=== PATIENT | female | born 1970 | race Two or more races ===

== ENCOUNTER 2017-03-20 19:24 | Observation (INO) | payer BC, OTHER ==
[2017-03-20] VITALS (7 sets, daily range): BP systolic 115–153; BP diastolic 84–104; PULSE 62–73; RESP 16–18; TEMP 98.2–98.7; O2SAT 95–100
[~2017-03-20] VITALS: Ht 162.6 cm; Wt 93.4 kg
[~2017-03-20 19:24] MED LIST: ALPR.25 PO; MULT1CHW33 PO
[2017-03-20] MEDS ORDERED: SODIUM CHLORIDE 0.9% FLUSH 10 ML FLUSH IVF PRN (19:45)
[2017-03-20] MEDS ORDERED: MENE0.3T3 PO (19:46)
--- NOTE | 2017-03-20 19:51 | PD ---
HPI Chief Complaint: Neuro Symptoms/ Deficits Time Seen by Provider: 19:30 Travel History International Travel<30 days: No Contact w/Intl Traveler<30days: No Traveled to known affect area: No History of Present Illness HPI patient gives a 2 day history of right sided headache, sharp, 6/10, intermittent , without alleviating/aggravating factors....now has tingling over right cheek and her right fingertips ONLY, onset about 1 hour ago. [place] doctor [place]cp but can't recall name all:denies pmhx: hyperchol, anxiety, menopause (on hormones, only meds she is on) pshx:csexn denies smoking/drinking history PFSH Past Medical History Diminished Hearing: No Immunizations Current: Yes Past Surgical History Section: Yes Social History Alcohol Use: No Tobacco Use: No Substance Use: No Allergies-Medications (Allergen,Severity, Reaction): Coded Allergies: No Known Allergies (Unverified Adverse Reaction, Unknown, 03/20/17) Reported Meds & Prescriptions Reported Meds & Active Scripts Active Reported Menest (Estrogens, Esterified) 0.3 Mg Tab 0.3 Mg PO DAILY Review of Systems Except as stated in HPI: all other systems reviewed are Neg General / Constitutional: No: Fever Eyes: No: Visual changes HENT: Positive: Headaches Cardiovascular: No: Chest Pain or Discomfort Respiratory: No: Shortness of Breath Gastrointestinal: No: Abdominal Pain Genitourinary: No: Dysuria Musculoskeletal: No: Pain Skin: No Rash Neurologic: Positive: Paresthesia Psychiatric: No: Depression Endocrine: No: Polydipsia Hematologic/Lymphatic: No: Easy Bruising Physical Exam Narrative GENERAL: SKIN: Warm and dry. HEAD: Atraumatic. Normocephalic. EYES: Pupils equal and round. No scleral icterus. No injection or drainage. ENT: No nasal bleeding or discharge. Mucous membranes pink and moist. NECK: Trachea midline. No JVD. CARDIOVASCULAR: Regular rate and rhythm. RESPIRATORY: No accessory muscle use. Clear to auscultation. Breath sounds equal bilaterally. GASTROINTESTINAL: Abdomen soft, non-tender, nondistended. Hepatic and splenic margins not palpable. MUSCULOSKELETAL: Extremities without clubbing, cyanosis, or edema. No obvious deformities. NEUROLOGICAL: Awake and alert. No obvious cranial nerve deficits. Motor grossly within normal limits. Five out of 5 muscle strength in the arms and legs. Normal speech. no facial droop PSYCHIATRIC: Appropriate mood and affect; insight and judgment normal. Data Data Last Documented VS Vital Signs Date Time Temp Pulse Resp B/P (MAP) Pulse Ox O2 Delivery O2 Flow Rate FiO2 03/20/17 19:47 18 95 Room Air Orders Orders Electrocardiogram (03/20/17 19:41) Prothrombin Time / Inr (Pt) (03/20/17 19:41) Act Partial Throm Time (Ptt) (03/20/17 19:41) Complete Blood Count With Diff (03/20/17 19:41) Comprehensive Metabolic Panel (03/20/17 19:41) Drug Screen, Random Urine (03/20/17 19:41) Troponin I (03/20/17 19:41) Urinalysis - C+S If Indicated (03/20/17 19:41) Ct Brain W/O Iv Contrast(Rout) (03/20/17 19:41) Ecg Monitoring (03/20/17 19:41) Iv Access Insert/Monitor (03/20/17 19:41) Oximetry (03/20/17 19:41) Blood Glucose (03/20/17 19:41) Sodium Chloride 0.9% Flush (Ns Flush) (03/20/17 19:45) Labs Laboratory Tests Test 03/20/17 19:35 [facility] Medical Decision Making Medical Screen Exam Complete: Yes Emergency Medical Condition: Yes Medical Record Reviewed: Yes Interpretation(s) ekg is nsr, 70, normal intervals, no stemi pattern Differential Diagnosis paresthesia peripheral v cva v tia v Narrative Course not tpa candidate due to minimum symptoms Physician Communication Physician Communication contacted and d/w dr marquez at 1954 who agrees with my plan of : if ct neg for bleed, admit for tia/stroke workup, give asa 325, follow bp and if persistently elevated after pain control may give bp control.....additionally agrees that this is NOT a tpa candidate due to minimal symptoms. ct official report at 2029 neg ich Diagnosis Primary Impression: TIA (transient ischemic attack) Qualified Codes: G45.9 - Transient cerebral ischemic attack, unspecified Admitting Information Admitting Physician Requests: Admit Manan Almonte MD Mar 20, 2017 19:51
--- NOTE | 2017-03-20 20:18 | RADRPT ---
EXAM DATE/TIME: 03/20/2017 19:54 [facility] COMPARISON: CT BRAIN W/O CONTRAST, March 01, 2015, 13:44. INDICATIONS : Numbness right side of face. RADIATION DOSE: 62.63 CTDIvol (mGy) MEDICAL HISTORY : Hypertension. SURGICAL HISTORY : None. ENCOUNTER: Initial ACUITY: 1 day PAIN SCALE: 0/10 LOCATION: Right cranial TECHNIQUE: Multiple contiguous axial images were obtained of the head. Using automated exposure control and adj ustment of the mA and/or kV according to patient size, radiation dose was kept as low as reasonably a chievable to obtain optimal diagnostic quality images. DICOM format image data is available electro nically for review and comparison. FINDINGS: CEREBRUM: The ventricles are normal for age. No evidence of midline shift, mass lesion, hemorrhage or acute in farction. No extra-axial fluid collections are seen. POSTERIOR FOSSA: The cerebellum and brainstem are intact. The 4th ventricle is midline. The cerebellopontine angle i s unremarkable. EXTRACRANIAL: The visualized portion of the orbits is intact. SKULL: The calvaria is intact. No evidence of skull fracture. CONCLUSION: Normal examination. Solomon Eldridge MD on March 20, 2017 at 20:11 Board Certified Radiologist. This report was verified electronically.
[2017-03-20 20:31] LABS: CHLORIDE 104 MEQ/L (98-107); SODIUM (NA) 138 MEQ/L (136-145)
[2017-03-20 20:36] LABS: ANION GAP 7 MEQ/L (5-15); BLOOD UREA NITROGEN 15 MG/DL (7-18)
[2017-03-20 20:39] LABS: ALT (GPT) 27 U/L (10-53); AST (GOT) 30 U/L (15-37); GLOMERULAR FILTRATION RATE 91 ML/MIN (>89)
[2017-03-20 20:40] LABS: TOTAL BILIRUBIN ADULT 0.4 MG/DL (0.2-1.0)
[2017-03-20 20:42] LABS: ALKALINE PHOSPHATASE 104 U/L (45-117)
[2017-03-20 20:51] LABS: POTASSIUM 3.7 MEQ/L (3.5-5.1)
[2017-03-20 20:56] LABS: BLOOD, URINE TRACE (NEG); GLUCOSE,URINE NEG (NEG); KETONE, URINE NEG (NEG); NITRITE,URINE NEG (NEG)
[2017-03-20 21:07] LABS: RBC, URINE 0-3 /hpf (0-3); SQUAMOUS EPITHELIAL CELL URINE 0-5 /hpf (0-5); URINE COLOR STRAW (YELLW/STRAW)
[2017-03-20 21:08] LABS: BACTERIA, URINE FEW /hpf
[2017-03-20 21:09] LABS: COMMENT (UR) CULT NOT INDICATED; CULTURE IF INDICATED CULT NOT INDICATED
[2017-03-20 21:15] LABS: APTT (PATIENT) 27.6 SEC (24.3-30.1); AUTOMATED NEUTROPHIL # 5.1 TH/MM3 (1.8-7.7); BASOPHIL % 0.5 % (0.0-2.0); EOSINOPHIL # 0.1 TH/MM3 (0-0.4); EOSINOPHIL % 1.3 % (0.0-4.0); HEMATOCRIT 39.5 % (35.0-46.0); HEMO FLAGS DIFF FINAL; LYMPH % 25.4 % (9.0-44.0); LYMPHOCYTE # 1.9 TH/MM3 (1.0-4.8); MEAN CELL VOLUME 89.8 FL (80.0-100.0); MEAN CORPUSCULAR HEMOGLOBIN 30.5 PG (27.0-34.0); MONO % 6.2 % (0.0-8.0); NEUT % 66.6 % (16.0-70.0); PLATELET COUNT 427 TH/MM3 (150-450); PROTHROMBIN TIME - PATIENT 9.7 SEC (9.8-11.6); RED CELL DISTRIBUTION WIDTH 13.4 % (11.6-17.2); WHITE BLOOD COUNT 7.6 TH/MM3 (4.0-11.0)
[2017-03-20] MEDS ORDERED: ASPIRIN 325 MG TAB PO ONE (21:30)
[2017-03-20] MEDS ORDERED: LACTULOSE SYRUP 20 GM/30 ML CUP PO PRN (22:15)
[2017-03-20] MEDS ORDERED: GLUCAGON 1 MG/ML VIAL OTHER PRN (22:15)
[2017-03-20] MEDS ORDERED: ACETAMINOPHEN 325 MG TAB PO PRN (22:15)
[2017-03-20] MEDS ORDERED: SENNOSIDES 8.6 MG TAB PO PRN (22:15)
[2017-03-20] MEDS ORDERED: ACETAMINOPHEN/HYDROcodone 325 MG/10 MG TAB PO PRN (22:15)
[2017-03-20] MEDS ORDERED: SODIUM CHLORIDE 0.9% FLUSH 10 ML FLUSH IV FLUSH PRN (22:15)
[2017-03-20] MEDS ORDERED: ACETAMINOPHEN/HYDROcodone 325 MG/5 MG TAB PO PRN (22:15)
[2017-03-20] MEDS ORDERED: DEXTROSE 50% IN WATER 50 ML VIAL(D50) IV PUSH PRN (22:15)
[2017-03-20] MEDS ORDERED: MAGNESIUM HYDROXIDE SUSP 30 ML CUP PO PRN (22:15)
[2017-03-20] MEDS ORDERED: ONDANSETRON HCL 4 MG/2 ML VIAL IVP PRN (22:15)
[2017-03-20] MEDS ORDERED: ENALAPRILAT 1.25 MG/ML VIAL IV PUSH PRN (22:15)
[2017-03-20] MEDS ORDERED: BISACODYL 10 MG SUPP RECTAL PRN (22:15)
[2017-03-21] VITALS: BP 150/99; PULSE 64; RESP 18; TEMP 98; O2SAT 100
[2017-03-21] MEDS: SODIUM CHLOR 0.9% 1000 ML INJ 1,000 ML IV SCH ×2 (00:27→12:21)
[2017-03-21 04:00] VITALS: BP 110/65; PULSE 62; RESP 18; TEMP 97.5; O2SAT 99
[2017-03-21 06:08] LABS: BASOPHIL % 0.5 % (0.0-2.0); EOSINOPHIL # 0.1 TH/MM3 (0-0.4); EOSINOPHIL % 1.6 % (0.0-4.0); HEMATOCRIT 40.7 % (35.0-46.0); HEMO FLAGS DIFF FINAL; LYMPH % 29.1 % (9.0-44.0); LYMPHOCYTE # 1.9 TH/MM3 (1.0-4.8); MEAN CELL VOLUME 92.4 FL (80.0-100.0); MEAN CORPUSCULAR HEMOGLOBIN 30.1 PG (27.0-34.0); MEAN CORPUSCULAR HGB CONC 32.6 % (32.0-36.0); MONO % 6.9 % (0.0-8.0); NEUT % 61.9 % (16.0-70.0); PLATELET COUNT 401 TH/MM3 (150-450); RED CELL DISTRIBUTION WIDTH 13.8 % (11.6-17.2); WHITE BLOOD COUNT 6.4 TH/MM3 (4.0-11.0)
[2017-03-21 06:19] LABS: CHLORIDE 108 MEQ/L (98-107); POTASSIUM 3.5 MEQ/L (3.5-5.1); SODIUM (NA) 141 MEQ/L (136-145)
[2017-03-21 06:51] LABS: ALKALINE PHOSPHATASE 84 U/L (45-117); ALT (GPT) 19 U/L (10-53); ANION GAP 7 MEQ/L (5-15); AST (GOT) 17 U/L (15-37); BICARBONATE 25.8 MEQ/L (21.0-32.0); BLOOD UREA NITROGEN 11 MG/DL (7-18); GLOMERULAR FILTRATION RATE 111 ML/MIN (>89); TOTAL BILIRUBIN ADULT 0.3 MG/DL (0.2-1.0)
[2017-03-21 08:00] VITALS: BP 107/74; PULSE 64; RESP 18; TEMP 98; O2SAT 98
[2017-03-21] MEDS: INSULIN ASPART SUPPLEMENTAL SCALE SQ SCH ×2 (08:00→12:00)
[2017-03-21 08:17] VITALS: O2SAT 97
[2017-03-21] MEDS ORDERED: DOCUSATE SODIUM 50 MG/SENNA 8.6 MG TAB PO SCH (09:00)
[2017-03-21] MEDS ORDERED: ASPIRIN 81 MG CHEW TAB PO SCH (09:00)
[2017-03-21] MEDS ORDERED: SODIUM CHLORIDE 0.9% FLUSH 10 ML FLUSH IV FLUSH SCH (09:00)
[2017-03-21] MEDS ORDERED: IBUPROFEN 800 MG TAB PO ONE (10:15)
[2017-03-21 10:16] LABS: HDL CHOLESTEROL 42.4 MG/DL (40.0-60.0); LDL CHOLESTEROL 106 MG/DL (0-99)
--- NOTE | 2017-03-21 10:46 | HHI.HP ---
[facility] [place] [facility] Primary [facility] Physician Chance Anguiano MD Admission Diagnosis TIA Diagnoses: Chief Complaint: Headache with facial numbness Travel History International Travel<30 Days: No Contact w/Intl Traveler <30 Da: No Traveled to Known Affected Are: No History of Present Illness This patient a 46-year-old female with 2 days of scalp pain and right facial numbness. Recently her son is in the hospital and her dog had been sick. She had not been sleeping well or eating well. Nonetheless today she developed the symptoms and came to the emergency room for further evaluation. Initial imaging was unremarkable. Patient had no peripheral numbness or tingling no slurred speech and no confusion. She is recommended for observation to rule out TIA Review of Systems Constitutional: DENIES: Diaphoretic episodes, Fatigue, Fever, Weight gain, Weight loss, Chills, Dizziness, Change in appetite, Night Sweats Endocrine: DENIES: Abnorml menstrual pattern, Heat/cold intolerance, Polydipsia , Polyuria, Polyphagia Eyes: DENIES: Blurred vision, Diplopia, Eye inflammation, Eye pain, Vision loss , Photosensitivity, Double Vision Ears, nose, mouth, throat: DENIES: Tinnitus, Hearing loss, Vertigo, Nasal discharge, Oral lesions, Throat pain, Hoarseness, Ear Pain, Running Nose, Epistaxis, Sinus Pain, Toothache, Odynophagia Respiratory: DENIES: Apneas, Cough, Snoring, Wheezing, Hemoptysis, Sputum production, Shortness of breath Cardiovascular: DENIES: Chest pain, Palpitations, Syncope, Dyspnea on Exertion , PND, Lower Extremity Edema, Orthopnea, Claudication Gastrointestinal: DENIES: Abdominal pain, Black stools, Bloody stools, Constipation, Diarrhea, Nausea, Vomiting, Difficulty Swallowing, Anorexia Genitourinary: DENIES: Abnormal vaginal bleeding, Dysmenorrhea, Dyspareunia, Sexual dysfunction, Urinary frequency, Urinary incontinence, Urgency, Hematuria , Dysuria, Nocturia, Vaginal discharge Musculoskeletal: DENIES: Joint pain, Muscle aches, Stiffness, Joint Swelling, Back pain, Neck pain Integumentary: DENIES: Abnormal pigmentation, Pruritus, Rash, Nail changes, Breast masses, Breast skin changes, Nipple discharge Hematologic/lymphatic: DENIES: Bruising, Lymphadenopathy Immunologic/allergic: DENIES: Eczema, Urticaria Except as stated in HPI: all other systems reviewed are Neg Past Family Social History Past Medical History Hyperlipidemia Past Surgical History Reported Medications reviewed in the EMR, nothing Allergies: Coded Allergies: No Known Allergies (Unverified Allergy, Unknown, 03/20/17) Active Ordered Medications reviewed in the EMR Family History Father from gastric cancer, mother from leukemia in her 30s Social History No tobacco or alcohol dependency, lives with her family Physical Exam Vital Signs Vital Signs Date Time Temp Pulse Resp B/P (MAP) Pulse Ox O2 Delivery O2 Flow Rate FiO2 03/21/17 08:17 97 21 03/21/17 08:00 98.0 64 18 107/74 (85) 98 03/21/17 04:00 97.5 62 18 110/65 (80) 99 03/21/17 00:00 98.0 64 18 150/99 (116) 100 03/20/17 23:36 97 21 03/20/17 23:11 62 03/20/17 22:40 98.2 64 18 150/99 (116) 100 03/20/17 22:39 03/20/17 21:32 65 16 128/88 (101) 96 Room Air 03/20/17 20:52 72 16 115/84 (94) 97 Room Air 03/20/17 19:47 18 95 Room Air 03/20/17 19:35 98.7 73 18 153/98 (116) 95 151/104 (120) 03/20/17 19:35 Room Air Physical Exam GENERAL: This is a well-nourished, well-developed patient, in no apparent distress. SKIN: No rashes, ecchymoses or lesions. Cool and dry. HEAD: Atraumatic. Normocephalic. No temporal or scalp tenderness. EYES: Pupils equal round and reactive. Extraocular motions intact. No scleral icterus. No injection or drainage. ENT: Nose without bleeding, purulent drainage or septal hematoma. Throat without erythema, tonsillar hypertrophy or exudate. Uvula midline. Airway patent. NECK: Trachea midline. No JVD or lymphadenopathy. Supple, nontender, no meningeal signs. CARDIOVASCULAR: Regular rate and rhythm without murmurs, gallops, or rubs. RESPIRATORY: Clear to auscultation. Breath sounds equal bilaterally. No wheezes , rales, or rhonchi. GASTROINTESTINAL: Abdomen soft, non-tender, nondistended. No hepato-splenomegaly , or palpable masses. No guarding. MUSCULOSKELETAL: Extremities without clubbing, cyanosis, or edema. No joint tenderness, effusion, or edema noted. No calf tenderness. Negative Homans sign bilaterally. NEUROLOGICAL: Awake and alert. Cranial nerves II through XII intact. Motor and sensory grossly within normal limits. Five out of 5 muscle strength in all muscle groups. Normal speech. Laboratory Laboratory Tests Test 03/20/17 19:35 03/20/17 20:40 03/21/17 04:38 Blood Urea Nitrogen 15 11 Creatinine 0.69 0.58 Random Glucose 82 122 Total Protein 8.0 6.7 Albumin 3.4 2.8 Calcium Level 8.6 8.5 Alkaline Phosphatase 104 84 Aspartate Amino Transf (AST/SGOT) 30 17 Alanine Aminotransferase (ALT/SGPT) 27 19 Total Bilirubin 0.4 0.3 Sodium Level 138 141 Potassium Level 3.7 3.5 Chloride Level 104 108 Carbon Dioxide Level 27.0 25.8 Anion Gap 7 7 Estimat Glomerular Filtration Rate 91 111 Troponin I LESS THAN 0.02 White Blood Count 7.6 6.4 Red Blood Count 4.40 4.40 Hemoglobin 13.4 13.3 Hematocrit 39.5 40.7 Mean Corpuscular Volume 89.8 92.4 Mean Corpuscular Hemoglobin 30.5 30.1 Mean Corpuscular Hemoglobin Concent 34.0 32.6 Red Cell Distribution Width 13.4 13.8 Platelet Count 427 401 Mean Platelet Volume 6.9 6.9 Neutrophils (%) (Auto) 66.6 61.9 Lymphocytes (%) (Auto) 25.4 29.1 Monocytes (%) (Auto) 6.2 6.9 Eosinophils (%) (Auto) 1.3 1.6 Basophils (%) (Auto) 0.5 0.5 Neutrophils # (Auto) 5.1 4.0 Lymphocytes # (Auto) 1.9 1.9 Monocytes # (Auto) 0.5 0.4 Eosinophils # (Auto) 0.1 0.1 Basophils # (Auto) 0.0 0.0 CBC Comment DIFF FINAL DIFF FINAL Differential Comment Prothrombin Time 9.7 Prothromb Time International Ratio 1.0 Activated Partial Thromboplast Time 27.6 Urine Color STRAW Urine Turbidity SLIGHT Urine pH 6.0 Urine Specific Orion 1.005 Urine Protein NEG Urine Glucose (UA) NEG Urine Ketones NEG Urine Occult Blood TRACE Urine Nitrite NEG Urine Bilirubin NEG Urine Leukocyte Esterase NEG Urine RBC 0-3 Urine Squamous Epithelial Cells 0-5 Urine Bacteria FEW Microscopic Urinalysis Comment CULT NOT INDICATED Urine Opiates Screen NEG Urine Barbiturates Screen NEG Urine Amphetamines Screen NEG Urine Benzodiazepines Screen NEG Urine Cocaine Screen NEG Urine Cannabinoids Screen NEG Triglycerides Level 156 Cholesterol Level 180 LDL Cholesterol 106 HDL Cholesterol 42.4 Cholesterol/HDL Ratio 4.24 Result Diagram: 03/21/17 0438 03/21/17 0438 Imaging Last [address] 03/20/171940 Signed Impressions: Service Date/Time: Monday, March 20, 2017 19:54 - CONCLUSION: Normal examination. Solomon Eldridge MD Assessment and Plan Problem List: (1) TIA (transient ischemic attack) ICD Code: G45.9 - Transient cerebral ischemic attack, unspecified Status: Acute Plan: Neurological symptoms which are nonspecific and likely represent, migraine. We'll try ibuprofen Follow-up repeat brain imaging If negative discharge home Problem Qualifiers (1) TIA (transient ischemic attack): Qualified Codes: G45.9 - Transient cerebral ischemic attack, unspecified Jovana Luz MD Mar 21, 2017 10:46
[2017-03-21 12:00] VITALS: BP 111/73; PULSE 62; RESP 16; TEMP 97.9; O2SAT 98
--- NOTE | 2017-03-21 13:03 | RADRPT ---
EXAM DATE/TIME: 03/21/2017 12:00 [facility] COMPARISON: No previous studies available for comparison. INDICATIONS : TIA. MEDICAL HISTORY : None. SURGICAL HISTORY : section. ENCOUNTER: Initial ACUITY: 1 day PAIN SCORE: 0/10 LOCATION: head TECHNIQUE: Multiplanar, multisequence MRI of the brain was performed without contrast. FINDINGS: CEREBRUM: The ventricles are normal for age. No evidence of midline shift, mass lesion, hemorrhage or acute in farction. No extraaxial fluid collections are seen. The pituitary gland and suprasellar cistern are normal in configuration. WHITE MATTER: No significant signal abnormalities are seen in the white matter. POSTERIOR FOSSA: The cerebellum and brainstem are intact. The 4th ventricle is midline. The cerebellopontine angle is unremarkable. The cerebellar tonsils are normal in position. DIFFUSION IMAGING: No focal areas of restricted diffusion are seen. No evidence of acute infarction. EXTRACRANIAL: The visualized portions of the orbits and paranasal sinuses are unremarkable. CONCLUSION: Negative MRI of the brain. There is no restricted diffusion There are no significant white matter changes. Ari Schaffer MD FACR on March 21, 2017 at 13:00 Board Certified Radiologist. This report was verified electronically.
--- NOTE | 2017-03-21 13:04 | RADRPT ---
EXAM DATE/TIME: 03/21/2017 12:00 [facility] COMPARISON: No previous studies available for comparison. INDICATIONS : TIA. MEDICAL HISTORY : None. SURGICAL HISTORY : section. ENCOUNTER: Initial ACUITY: 1 day PAIN SCORE: 0/10 LOCATION: head Please note a normal MRA of the brain does not entirely exclude the possibility of a small aneurysm, nor the possibility of distal intracranial vessel disease. TECHNIQUE: 3D time of flight MRA was performed. Source images, multiplanar STS MIP, and 3D volume MIP reconstru ctions were reviewed. FINDINGS: There is excellent visualization of the major intracranial arteries out to the second-order branch ve ssels. There is no evidence for aneurysm, vessel truncation or stenosis, and no evidence for vascula r malformation. CONCLUSION: Negative for major branch vessel occlusion. Ari Schaffer MD FACR on March 21, 2017 at 13:01 Board Certified Radiologist. This report was verified electronically.
--- NOTE | 2017-03-21 15:23 | ECHRPT ---
Indication: cva/tia CONCLUSIONS Normal left ventricular size. The left ventricular systolic function is low normal with an estimated ejection fraction in the rang e of 50- 55%. Mild mitral valve regurgitation. There is mild tricuspid valve regurgitation. The estimated pulmonary arterial pressure is 31 mmHg. BP: / HR: Rhythm: MEASUREMENTS (Male / Female) Normal Values Technical Quality:Good 2D ECHO LV Diastolic Diameter PLAX 3.9 cm 4.2 - 5.9 / 3.9 - 5.3 cm LV Systolic Diameter PLAX 3.0 cm IVS Diastolic Thickness 1.4 cm 0.6 - 1.0 / 0.6 - 0.9 cm LVPW Diastolic Thickness 0.7 cm 0.6 - 1.0 / 0.6 - 0.9 cm LV Relative Wall Thickness 0.6 RV Internal Dim ED PLAX 2.7 cm M-MODE Aortic Root Diameter MM 3.0 cm LA Systolic Diameter MM 3.0 cm LA Ao Ratio MM 1.0 AV Cusp Separation MM 2.0 cm DOPPLER Mitral E Point Velocity 69.6 cm/s Mitral A Point Velocity 60.2 cm/s Mitral E to A Ratio 1.2 LV E' Lateral Velocity 12.7 cm/s Mitral E to LV E' Lateral Ratio 5.5 LV E' Septal Velocity 12.1 cm/s Mitral E to LV E' Septal Ratio 5.8 TR Peak Velocity 231.0 cm/s TR Peak Gradient 21.3 mmHg Right Atrial Pressure 10.0 mmHg Pulmonary Artery Systolic Pressu 31.3 mmHg Right Ventricular Systolic Press 31.3 mmHg FINDINGS LEFT VENTRICLE Normal left ventricular size. The left ventricular systolic function is low normal with an estimated ejection fraction in the rang e of 50- 55%. RIGHT VENTRICLE Normal right ventricular size and systolic function. LEFT ATRIUM The left atrial size is normal. RIGHT ATRIUM The right atrial size is normal. ATRIAL SEPTUM Normal atrial septal thickness without atrial level shunting by limited color doppler interrogation. AORTA The aortic root and proximal ascending aorta are normal in size on limited imaging. MITRAL VALVE Structurally normal mitral valve. Mild mitral valve regurgitation. AORTIC VALVE Trileaflet aortic valve. No aortic valve stenosis or regurgitation. TRICUSPID VALVE Structurally normal tricuspid valve. There is mild tricuspid valve regurgitation. The estimated pulmonary arterial pressure is 31.3 mmHg. PULMONARY VALVE No pulmonary valve regurgitation or stenosis. VESSELS The inferior vena cava is normal in size. PERICARDIUM No pericardial effusion. Elysia Vasquez MD, FACC (Electronically Signed) Final Date:21 March 2017 15:23
[2017-03-21 16:00] VITALS: BP 109/60; PULSE 68; RESP 18; TEMP 98.4; O2SAT 99
[2017-03-21] MEDS ORDERED: IBUP-232 PO (16:00)
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
[2017-03-21 16:06] LABS: HEMOGLOBIN A1a 1.2 %; HEMOGLOBIN A1b 0.8 %; HEMOGLOBIN F 1.4 %; HEMOGLOBIN LA1C 2.1 %; HEMOGLOBIN P3 3.7 %
--- NOTE | 2017-03-21 18:05 | EKG ---
Date Performed: 03/20/2017 Time Performed: 19:50:54 PTAGE: 46 years EKG: Sinus rhythm MINIMAL VOLTAGE CRITERIA FOR LVH, CONSIDER NORMAL VARIANT BORDERLINE ECG Since PREVIOUS TRACING , no significant change noted PREVIOUS TRACIN03/01/2015 12.58 DOCTOR: Emma Azul Interpretating Date/Time 03/21/2017 18:04:21
[2017-03-21] MEDS ORDERED: PRAVASTATIN SOD 40 MG TAB PO SCH (21:00)
[2017-03-22] MEDS ORDERED: INFLUENZA VIRUS VACCINE (QUADRIVALENT) 0.5 ML SYR IM ONE (10:00)
== END 2017-03-21 17:00 | disposition home or self-care (01) ==
LOC: PHED 19:24 → PHEDA 21:55 → PH3A 22:36
PROVIDERS: ADMIT Hospitalist; ATTEND Hospitalist
DX: G45.9 Transient cerebral ischemic attack, unspecified (principal); G43.109 Migraine with aura, not intractable, without status migrainosus; E78.5 Hyperlipidemia, unspecified; R94.31 Abnormal electrocardiogram [ECG] [EKG]
CPT/HCPCS: 70450; 70544; 70551; 80053; 80061; 80307; 81001; 83036; 84484; 85025; 85610; 85730; 93005; 93306; 96360; 96361; 99285; G0378; J7030

== ENCOUNTER 2017-09-22 12:14 | Emergency (ER) | payer BC, OTHER ==
[~2017-09-22 12:14] MED LIST changes: -ALPR.25 PO; +IBUP-232 PO; +MENE0.3T3 PO; -MULT1CHW33 PO
[2017-09-22 12:19] VITALS: BP 138/82; PULSE 124; RESP 20; TEMP 98.8; O2SAT 96
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
[2017-09-22] MEDS ORDERED: ACETAMINOPHEN 325 MG TAB PO ONE (12:45)
[2017-09-22] MEDS ORDERED: ONDANSETRON ODT 4 MG TAB PO ONE (12:45)
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
[2017-09-22] MEDS ORDERED: IBUP-232 PO (13:41)
[2017-09-22] MEDS ORDERED: CYCL10TA PO (13:41)
[2017-09-22] MEDS ORDERED: CYCLOBENZAPRINE HCL 10 MG TAB PO ONE (13:45)
[2017-09-22 13:58] VITALS: BP 106/72; PULSE 80; RESP 20; O2SAT 98
--- NOTE | 2017-09-22 18:50 | EKG ---
Date Performed: 09/22/2017 Time Performed: 12:47:30 PTAGE: 46 years EKG: ECTOPIC ATRIAL TACHYCARDIA POSSIBLE RIGHT VENTRICULAR HYPERTROPHY MODERATE T-WAVE ABNORMALI TY, CONSIDER INFERIOR ISCHEMIA ABNORMAL ECG PREVIOUS TRACING : 03/20/2017 19.50 When compared to prior EKG, patient is now tachycardic DOCTOR: Kristen Ivory Interpretating Date/Time 09/22/2017 18:49:21
== END 2017-09-22 14:18 | disposition home or self-care (01) ==
LOC: PHEFT 12:14
DX: R07.89 Other chest pain (principal); M54.2 Cervicalgia; R00.0 Tachycardia, unspecified; R51 Headache; M62.838 Other muscle spasm; R11.0 Nausea; R94.31 Abnormal electrocardiogram [ECG] [EKG]; V89.2XXA Person injured in unspecified motor-vehicle accident, traffic, initial encounter; E78.00 Pure hypercholesterolemia, unspecified; Z86.79 Personal history of other diseases of the circulatory system; Z87.39 Personal history of other diseases of the musculoskeletal system and connective tissue
CPT/HCPCS: 71045; 93005; 99284